=== PATIENT | female | born 1950 | race Caucasian/White ===

== ENCOUNTER 2016-11-18 13:44 | Emergency (ER) | payer OTHER ==
[~2016-11-18] VITALS: Ht 160 cm; Wt 78.0 kg
[2016-11-18 15:30] VITALS: BP 103/70
== END 2016-11-18 15:31 | disposition home or self-care (01) ==
LOC: EME 13:44
DX: S50.11XA Contusion of right forearm, initial encounter (principal); V49.40XA Driver injured in collision with unspecified motor vehicles in traffic accident, initial encounter
CPT/HCPCS: 73090; 99281; 99283